=== PATIENT | male | born 1950 | race Caucasian/White ===

== ENCOUNTER 2016-12-31 13:43 | Observation (INO) | payer OTHER ==
[2016-12-31] MEDS ORDERED: NS 0.9% 1000 ML* 1,000 ML IV ONE (14:18)
--- NOTE | 2016-12-31 14:30 | ED ---
Chris Cornejo Matthew, scribed for Deepali Cardenas MD on 12/31/16 at 1412 . Progress - Progress Note Progress Note: A 66 y/o male presents to the ED after syncopating while at work today. The patent states that he stood up to put something into the computer and passed out. He denies head trauma, chest pain and SOB. The patient has no cardiac Hx. No smoking. labs and ekg entered Course/Dx - Diagnoses Provider Diagnoses: Syncope The documentation as recorded by the Chris pereyra Matthew accurately reflects the service I personally performed and the decisions made by me, Deepali Cardenas MD.
[2016-12-31 14:52] LABS: Hematocrit 44 % (42-52); Hemoglobin 14.7 g/dl (14.0-18.0); Mean Corpuscular HGB Conc 34 g/dl (31-36); Mean Corpuscular Hemoglobin 30 pg (27-31); Mean Corpuscular Volume 90 fL (80-94); Mean Platelet Volume 7 um3 (7.4-10.4); Red Blood Count 4.84 10^6/ul (4.0-5.4); Red Cell Distribution Width 14 % (10.5-15); White Blood Count 4.6 10^3/ul (3.5-10.8)
--- NOTE | 2016-12-31 14:53 | RAD ---
HISTORY: Syncope COMPARISONS: None VIEWS:1: Single frontal portable view of the chest at 2:35 PM FINDINGS: LINES AND TUBES: None. CARDIOMEDIASTINAL SILHOUETTE: The cardiomediastinal silhouette is normal for portable technique. PLEURA: The costophrenic angles are sharp. No pleural abnormalities are noted. LUNG PARENCHYMA: The lungs are clear. ABDOMEN: The upper abdomen is clear. There is no subphrenic gas. BONES AND SOFT TISSUES: No bone or soft tissue abnormalities are noted. IMPRESSION: NO ACTIVE CARDIOPULMONARY DISEASE.
[2016-12-31 15:15] LABS: Albumin 3.9 g/dL (3.2-5.2); BUN/Creatinine Ratio 14.5 (8-20); Calcium 8.9 mg/dL (8.6-10.3); EGFR African American 80.7 (>60); EGFR Non-African American 62.8 (>60); Globulin 2.3 g/dL (2-4); Magnesium 1.9 mg/dL (1.9-2.7); Potassium 3.6 mmol/L (3.5-5.0); Total Bilirubin 0.5 mg/dL (0.2-1.0); Total Protein 6.2 g/dL (6.4-8.9)
[2016-12-31 15:38] LABS: TSH (Thyroid Stimulating Horm) 1.3 mcIU/mL (0.34-5.60)
--- NOTE | 2016-12-31 17:19 | PN ---
Hospitalist Progress Note HOSPITALIST ADDENDUM Case reviewed and d/w Chris Collazo NP. Mr. Schofield is a 66yo M with PMH of HTN who presented to ED after a syncopal episode. Labs and CxR reviewed. EKG not yet done. Also describes some episodes of near syncope preceded by olfactory aura ? partial simple seizures. Will admit for further evaluation and monitoring.
[2016-12-31 18:19] LABS: Urine Bilirubin Negative (Negative); Urine Glucose Negative (Negative); Urine Nitrite Negative (Negative)
--- NOTE | 2016-12-31 19:26 | ED ---
Cameron Cornejo Adam, scribed for Jose Moore MD on 12/31/16 at 1554 . Syncope/Near Syncope - HPI Summary HPI Summary: Pt is a 66 year old male presenting with an episode of syncope while he was at work today. The patent states that he thinks he stood up to put something into the computer and then lost consciousness. He felt no warning that he was going to pass out. He reports back pain as he regained consciousness because he struck it on the table. He denies head trauma, chest pain, and SOB. He is unsure how long he was unconscious for. He states that in the past he has had episodes of suddenly smelling something strange and then having his vision go cloudy, but he states that this did not happen today. PMHx of HTN, GERD, and kidney stones. No tobbaco Hx. - History Of Current Complaint Chief Complaint: EDDizziness Time Seen by Provider: 12/31/16 15:45 Hx Obtained From: Patient Onset/Duration: Sudden Onset, Lasting Minutes, Resolved Timing: Intermittent Episode Lasting Context: Loss Of Consciousness Activity At Onset: Exertion - Standing up Associated Head Trauma: No Aggravating Factor(s): Position Change Alleviating Factor(s): Spontaneous Resolution Associated Signs And Symptoms: Negative - Allergies/Home Medications Allergies/Adverse Reactions: Allergies Allergy/AdvReac Type Severity Reaction Status Date / Time No Known Drug Allergy Allergy none Verified 12/31/16 14:46 Home Medications: Home Medications Lisinopril TAB* [Prinivil TAB*] 2.5 mg PO DAILY 12/31/16 [History Confirmed ] Omeprazole CAP* [Prilosec CAP* 20 MG] 20 mg PO QAM 12/31/16 [History Confirmed 12/31/16] Tamsulosin CAP* [Flomax CAP*] 0.4 mg PO DAILY 12/31/16 [History Confirmed ] PMH/Surg Hx/FS Hx/Imm Hx Infectious Disease History: No Infectious Disease History: Denies: Traveled Outside the [place] in Last 30 Days - Family History Known Family History: Positive: None - Reviewed and noncontributory - Social History Occupation: Employed Full-time Lives: With Family - Alcohol Use: None - Formerly Hx Tobacco Use: No Smoking Status (MU): Never Smoked Tobacco Review of Systems Constitutional: Negative Negative: Fever Positive: Myalgia - Back pain Positive: Syncope. Negative: Headache All Other Systems Reviewed And Are Negative: Yes Physical Exam Triage Information Reviewed: Yes Vital Signs On Initial Exam: Initial Vitals Temp Pulse Resp BP Pulse Ox 97.2 F 73 15 127/78 98 12/31/16 14:27 12/31/16 14:27 12/31/16 14:27 12/31/16 14:27 12/31/16 14:27 Vital Signs Reviewed: Yes Appearance: Positive: Well-Appearing, No Pain Distress Skin: Positive: Warm, Skin Color Reflects Adequate Perfusion, Dry Head/Face: Positive: Normal Head/Face Inspection Eyes: Positive: Normal ENT: Positive: Normal ENT inspection Neck: Positive: Supple, Nontender Respiratory/Lung Sounds: Positive: Clear to Auscultation, Breath Sounds Present Cardiovascular: Positive: RRR Abdomen Description: Positive: Nontender, Soft Bowel Sounds: Positive: Present Musculoskeletal: Positive: Normal Neurological: Positive: Normal Psychiatric: Positive: Normal, Affect/Mood Appropriate Diagnostics - Vital Signs Vital Signs Temp Pulse Resp BP Pulse Ox 12/31/16 14:27 97.2 F 73 15 127/78 98 - Laboratory Lab Results: Lab Results 12/31/16 12/31/16 Range/Units 14:41 14:41 WBC 4.6 (3.5-10.8) 10^3/ul RBC 4.84 (4.0-5.4) 10^6/ul Hgb 14.7 (14.0-18.0) g/dl Hct 44 (42-52) % MCV 90 (80-94) fL MCH 30 (27-31) pg MCHC 34 (31-36) g/dl RDW 14 (10.5-15) % Plt Count 183 (150-450) 10^3/ul MPV 7 L (7.4-10.4) um3 Neut % (Auto) 76.8 (38-83) % Lymph % (Auto) 13.6 L (25-47) % [place] % (Auto) 8.4 (1-9) % Eos % (Auto) 0.7 (0-6) % Baso % (Auto) 0.5 (0-2) % Absolute Neuts (auto) 3.5 (1.5-7.7) 10^3/ul Absolute Lymphs (auto) 0.6 L (1.0-4.8) 10^3/ul Absolute Monos (auto) 0.4 (0-0.8) 10^3/ul Absolute Eos (auto) 0 (0-0.6) 10^3/ul Absolute Basos (auto) 0 (0-0.2) 10^3/ul Absolute Nucleated RBC 0 10^3/ul Nucleated RBC % 0 Sodium 135 (133-145) mmol/L Potassium 3.6 (3.5-5.0) mmol/L Chloride 106 (101-111) mmol/L Carbon Dioxide 25 (22-32) mmol/L Anion Gap 4 (2-11) mmol/L BUN 17 (6-24) mg/dL Creatinine 1.17 (0.67-1.17) mg/dL Est GFR ( Amer) 80.7 (>60) Est GFR (Non-Af Amer) 62.8 (>60) BUN/Creatinine Ratio 14.5 (8-20) Glucose 91 (70-100) mg/dL Calcium 8.9 (8.6-10.3) mg/dL Magnesium 1.9 (1.9-2.7) mg/dL Total Bilirubin 0.50 (0.2-1.0) mg/dL AST 31 (13-39) U/L ALT 16 (7-52) U/L Alkaline Phosphatase 64 (34-104) U/L Troponin I 0.00 (<0.04) ng/mL Total Protein 6.2 L (6.4-8.9) g/dL Albumin 3.9 (3.2-5.2) g/dL Globulin 2.3 (2-4) g/dL Albumin/Globulin Ratio 1.7 (1-3) TSH 1.30 (0.34-5.60) mcIU/mL Result Diagrams: 12/31/16 14:41 12/31/16 14:41 Lab Statement: Any lab studies that have been ordered have been reviewed, and results considered in the medical decision making process. - Radiology CXR Radiology Interpretation Completed By: Radiologist - IMPRESSION: NO ACTIVE CARDIOPULMONARY DISEASE. - Additional Comments Diagnostic Additional Comments: Troponin I - 0.00 Course/Dx Course Of Treatment: Mr. Schofield presented with a worrisome story of sudden syncope without warning. He remained stable in the ED on the monitoer and labs were normal, however, I felt that he should be monitored for a longer period and he was admitted. - Diagnoses Provider Diagnoses: Syncope Discharge - Discharge Plan Condition: Stable Disposition: ADMITTED TO [facility] The documentation as recorded by the Cameron pereyra Adam accurately reflects the service I personally performed and the decisions made by me, Jose Moore MD.
--- NOTE | 2016-12-31 22:06 | HP ---
HISTORY AND PHYSICAL: DATE OF ADMISSION: 12/31/16 ATTENDING PHYSICIAN: Dr. Cortez * (report dictated by Javier Diaz, JOSELIN) PRIMARY CARE PROVIDER: Ju Vines. CHIEF COMPLAINT: Syncope. HISTORY OF PRESENT ILLNESS: Mr. Schofield is a 66-year-old male with past medical history of hypertension, GERD, and history of kidney stones who presents to the emergency department today with report of syncopal episode at work. 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 The patient reports that he remembers standing up and the next thing he knew, he was on the floor waking up. He denies any sensation or warning prior to passing out. When the patient came to, he reports that he did hit his middle to lower back on a machine and suffered small abrasion, but otherwise was not injured. He denies any head trauma. He denies any nausea, vomiting, diarrhea. No recent illness. The patient reports he was under a lot of stress , especially today at work. He reports he drinks a lot of water. The patient does report he has had some strange sensations in the past, the last one being about a month ago, which he states "I smelled a different odor, felt like I was having an outer body experience like I was going to pass out and then it resolved within a few seconds." The patient denies any history of seizures in the past. In the emergency department, the patient reports he is at his baseline. Labs are unremarkable. He denies ever having any shortness of breath, chest pain. No history of CAD. PAST MEDICAL HISTORY: 1. Hypertension. 2. GERD. 3. History of kidney stones. HOME MEDICATIONS: 1. Flomax 0.4 mg p.o. daily. 2. Omeprazole 20 mg p.o. q.a.m. 3. Lisinopril 2.5 mg p.o. daily. ALLERGIES: No known drug allergies. FAMILY HISTORY: Reviewed and noncontributory. SOCIAL HISTORY: Denies history of tobacco abuse. Rare alcohol use. No recreational drug use. 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 He is and lives with his , Tina Schofield, as his surrogate decision maker. He has 3 grown daughters. REVIEW OF SYSTEMS: A 14-point review of systems was performed. All the pertinent positives and negative are mentioned in the history of present illness. All the remaining systems are negative. PHYSICAL EXAMINATION GENERAL APPEARANCE: A healthy appearing 66-year-old male, sitting up in the emergency department stretcher, in no acute distress. and 3 daughters are at the bedside. VITAL SIGNS: Temperature 97.2, heart rate 55, respirations 16, O2 sat 98% on room air, blood pressure 127/78. HEENT: Head is normocephalic, atraumatic. Pupils are equal and reactive to light. Oropharynx is clear. Moist mucous membranes. Good dentition. NECK: Supple. No cervical or supraclavicular lymphadenopathy. CARDIAC: S1, S2. No murmurs, rubs, or gallops appreciated. No lower extremity edema noted. 2+ DP pulses bilaterally. RESPIRATORY: No accessory muscle use. Lungs are clear to auscultation bilaterally. ABDOMEN: Soft, nontender, nondistended. Normal bowel sounds x4. MUSCULOSKELETAL: Strength is 5/5 throughout. No clubbing or cyanosis noted. Full range of motion in all extremities. Normal gait noted. SKIN: Warm, pink, dry. Noted on the mid thoracic area is a small superficial abrasion. No spinal tenderness. NEURO: Cranial nerves II through XII are intact. PSYCH: Alert, oriented x3. Appropriate to situation. LABORATORY DATA AND DIAGNOSTIC STUDIES: Sodium 135, potassium 3.6, chloride 106, carbon dioxide 25, anion gap 4, BUN 17, creatinine 1.17, glucose 91, calcium 8.9, magnesium 1.9. Total bilirubin 0.50. AST 31, ALT 16, alkaline phosphatase 64. Troponin 0.00, total protein 6.2, albumin 3.9, TSH 1.30. WBC is 4.6, HGB 14.7, HCT 44, MCV 90, MCH 30, MCHC 34, RDW 14, platelet count 183. D-dimer less than 200. Chest x-ray. Impression: No active cardiopulmonary disease. ASSESSMENT AND PLAN: Mr. Schofield is a 66-year-old male with past medical history of hypertension and gastroesophageal reflux disease who presents to the emergency department after a syncopal episode. 1. Syncope. Concern for seizure versus arrhythmia versus vasovagal episode. With the patient's report of a history of a sensation with a presyncopal feeling , it is possible that this is an aura sensation. We will admit the patient to telemetry on observation. Obtain EEG, transthoracic echocardiogram, trend another troponin. Obtain EKG, which was not done in the emergency department. Orthostatic vital signs. Low suspicion for infection. 2. Hypertension, controlled. Continue lisinopril. 3. Gastroesophageal reflux disease, controlled. Continue omeprazole. 4. DVT prophylaxis, heparin subcu. 5. Code status, full code. The patient lists his , Tina Schofield, as the healthcare proxy. She does not have a cell phone. Her home number is [phone]. 6. Hospital status, observation. TIME SPENT: Approximately 60 minutes was spent on this admission. JAVIER DIAZ, JOSELIN [id number]/[facility] #: [id number] KAYLIN
[2017-01-01] MEDS: Heparin VIAL(*) 5000 UNITS/ML VIAL (FIVE THOUSAND) SUBCUT SCH ×3 (00:05→15:16)
[2017-01-01] MEDS ORDERED: Omeprazole CAP* 20 MG PO SCH (06:00)
[2017-01-01 06:06] LABS: Hematocrit 45 % (42-52); Hemoglobin 14.8 g/dl (14.0-18.0); Mean Corpuscular HGB Conc 33 g/dl (31-36); Mean Corpuscular Hemoglobin 30 pg (27-31); Mean Corpuscular Volume 91 fL (80-94); Mean Platelet Volume 7 um3 (7.4-10.4); Red Cell Distribution Width 14 % (10.5-15); White Blood Count 4.1 10^3/ul (3.5-10.8)
[2017-01-01 06:20] LABS: BUN/Creatinine Ratio 13.6 (8-20); Calcium 8.5 mg/dL (8.6-10.3); EGFR African American 79.9 (>60); EGFR Non-African American 62.1 (>60)
[2017-01-01] MEDS ORDERED: Tamsulosin CAP* 0.4 MG PO SCH (09:00)
[2017-01-01] MEDS ORDERED: Lisinopril TAB* 5 MG PO SCH (09:00)
[2017-01-01 15:26] VITALS: BP 127/71
--- NOTE | 2017-01-01 16:29 | ECHO ---
Patient: NATHALY HINTON [facility] Rec#: [id number] : 1950 Date: 01/01/2017 Age: 66y Height: 185.4 cm / 73.0 in Weight: 83 kg / 182.9 lbs Sex: M BSA: 2.07 Room#: 453 Admit Date#: 12/31/2016 Type: Inpatient Referring: Mariah Collazo Reading: Maikel Cuadra MD [employer] Supervisor: Opal Headley [employer] Supervisor: Lauren Flores RN RDCS Transthoracic Echocardiogram Indication: Syncope BP: 118/77 HR: 54 Rhythm: Bradycardia Findings History: HTN, GERD. Technical Comments: The study quality is fair. Completed at 1430 Left Ventricle: The left ventricular chamber size is normal. Mild concentric left ventricular hypertrophy is observed. There is a prominent septal knuckle. There is normal left ventricular systolic function. The estimated ejection fraction is 55-60%. The assessment of diastolic function is non-diagnostic.There is no evidence for clinically significant diastolic dysfunction. Left Atrium: The left atrial chamber size is normal. Right Ventricle: The right ventricular cavity size is normal. The right ventricular global systolic function is normal. Right Atrium: The right atrium is mildly dilated. Cannot rule out a small patent foramen ovale in the 4 chamber view with color flow suggesting left to right flow. There is evidence of an atrial septal aneurysm. Aortic Valve: The aortic valve is trileaflet. The aortic valve leaflets are mildly thickened. There is no evidence of aortic regurgitation. There is no evidence of aortic stenosis. Mitral Valve: The mitral valve leaflets are mildly thickened. There is a trace of mitral regurgitation. There is no evidence of mitral stenosis. Tricuspid Valve: The tricuspid valve leaflets are normal. There is trace tricuspid regurgitation. No pulmonary hypertension is noted. There is no tricuspid stenosis. Pulmonic Valve: The pulmonic valve appears normal. There is trace to mild pulmonic regurgitation. There is no pulmonic stenosis. Pericardium: A trivial pericardial effusion is visualized.There are some strandlike strucures within the pericardium posteriorly visualized during systole. Aorta: There is no dilatation of the ascending aorta. The aortic arch is not well visualized. There is no dilation of the aortic root. Pulmonary Artery: The main pulmonary artery appears normal. Venous: The inferior vena cava appears normal in size. There is a greater than 50% respiratory change in the inferior vena cava dimension. Conclusions Mild concentric left ventricular hypertrophy is observed. There is a prominent septal knuckle. There is normal left ventricular systolic function. The estimated ejection fraction is 55-60%. Mild concentric left ventricular hypertrophy is observed. There is normal left ventricular systolic function. The estimated ejection fraction is 55-60%. There is no evidence for clinically significant diastolic dysfunction. The right atrium is mildly dilated. Cannot rule out a small patent foramen ovale in the 4 chamber view with color flow suggesting left to right flow(consider POORNIMA if clinically relevant). There is a trace of mitral regurgitation. There is trace tricuspid regurgitation. A trivial pericardial effusion is visualized. No reports of prior studies offered for comparison. Measurements Name Value Normal Range RVIDd (AP) 2D 3.4 cm (0.9 - 2.6) RVDdMajor (2D) 3.3 cm (2.2 - 4.4) RAd ISD 4CH 5.4 cm (3.4 - 4.9) RA (A4C)W 3.6 cm (2.9 - 4.6) IVSd (2D) 1.2 cm (0.6 - 1) LVPWd (2D) 1.2 cm (0.6 - 1) LVIDd (2D) 4.6 cm (3.6 - 5.4) LVIDs (2D) 2.7 cm - LV FS (2D) 41 % (25 - 45) Aortic Annulus 2.2 cm (1.4 - 2.6) Ao root diameter (2D) 3.3 cm (2.1 - 3.5) Ascending Ao 3 cm (2.1 - 3.4) LA dimension (AP) 2D 3.3 cm (2.3 - 3.8) LAd ISD 4CH 4.6 cm (2.9 - 5.3) LA ISD 4CH W 3.8 cm (2.5 - 4.5) Name Value Normal Range LA ESV SP 4CH (A/L) 33 ml - LA ESV SP 2CH (A/L) 33 ml - LA ESV BP (A/L) 34 ml - LA ESV BP (A/L) index 16 ml/m2 - LA ESV SP 4CH (MOD) 30 ml - LA ESV SP 2CH (MOD) 30 ml - Name Value Normal Range MV E-wave Vmax 0.6 m/sec - MV deceleration time 303 msec - MV A-wave Vmax 0.4 m/sec - MV E:A ratio 1.5 ratio - LV septal e' Vmax 0.06 m/sec - LV lateral e' Vmax 0.08 m/sec - LV E:e' septal ratio 10 ratio - LV E:e' lateral ratio 7.5 ratio - Name Value Normal Range AV Vmax 1.1 m/sec - AV VTI 19 cm - LVOT Vmax 1 m/sec - LVOT VTI 23 cm - Name Value Normal Range TR Vmax 1.65 m/sec - TR peak gradient 11 mmHg - RAP 3 mmHg - RVSP 14 mmHg - IVC diameter 0.9 cm - Name Value Normal Range PV Vmax 0.9 m/sec -
--- NOTE | 2017-01-01 17:04 | DCNOTE ---
Patient has had no recurrence of symptoms. Has been bradycardic at times on telementry but no significant pauses and has been asymptomatic. Has been ambulating around the unit with no issues. On exam, bradycardia, no m/g/r, CTA B/L no w/r/r/, abd soft, NTND, BS+, no neuro deficits Plan to discharge today as work-up has been negative. F/U with PCP.
--- NOTE | 2017-01-02 03:57 | EEG ---
ELECTROENCEPHALOGRAPHY: DATE OF STUDY: 01/01/17 LOCATION: He is an inpatient. REFERRING PHYSICIAN: Alcon Garcia MD CLINICAL HISTORY: Episode of loss of consciousness on 12/31/16. Other sensation such as out-of-body and possible olfactory hallucinations. MEDICATIONS: Include: 1. Omeprazole. 2. Flomax. REPORT: This 16-channel EEG is remarkable for background activity consisting of a well-formed alpha rhythm in the posterior derivations at 9 cycles per second, which is symmetric and suppressed by eye opening. Moderate voltage bifrontal beta rhythms are noted and are symmetric. Activation procedures are not attempted. The patient drowses with intermittent central and bitemporal slowing. Later portions of the tracing, some vertex sharp activity is noted, but sleep spindles are not clearly recognized. There are no focal, lateralized , or epileptiform abnormalities. CLINICAL IMPRESSION: Normal awake and drowsy EEG. [id number] #: [id number] MTDD
== END 2017-01-01 18:00 | disposition home or self-care (01) ==
LOC: ED 13:43 → MEDTELE 16:22
PROVIDERS: ADMIT Registered Nurse; ATTEND Hospitalist
DX: R55 Syncope and collapse (principal); I10 Essential (primary) hypertension; K21.9 Gastro-esophageal reflux disease without esophagitis; R00.1 Bradycardia, unspecified; I51.7 Cardiomegaly; Z87.442 Personal history of urinary calculi; Z79.899 Other long term (current) drug therapy
CPT/HCPCS: 36415; 71010; 80048; 80053; 81003; 83735; 84443; 84484; 85025; 85379; 93005; 93306; 95819; 96372; 99283; A9270-GY; G0378; J1644